=== PATIENT | male | born 1955 | race American Indian/Alaskan Native ===

== ENCOUNTER 2017-08-04 08:16 | Outpatient (CLI) | payer OTHER ==
--- NOTE | 2017-08-04 09:22 | XRay Report ---
CERVICAL SPINE, 5 VIEWS HISTORY: Cervical radiculopathy. FINDINGS: Compared to 06/22/12 exam. There is mild reversal of the normal cervical lordosis. Moderate to severe degenerative disc disease at C3-4 and C5-6 appear relatively stable. Mild degenerative disc disease at C4-5 has increased to moderate. There is new moderate degenerative disc disease at C6-7. No evidence for fracture, subluxation or suspicious bony lesion. The facet joints remain within normal limits. The oblique images demonstrate moderate left neural foraminal narrowing at C4-5. IMPRESSION: Reversal of the normal cervical lordosis. Moderate cervical spondylosis which has increased in severity since 2012 as described above. Question moderate left neuroforaminal narrowing at C4-5.
== END 2017-08-04 08:17 | disposition home or self-care (01) ==
LOC: XRAY 08:16
PROVIDERS: ATTEND Internal Medicine
DX: M50.322 Other cervical disc degeneration at C5-C6 level (principal); M50.31 Other cervical disc degeneration, high cervical region; M50.321 Other cervical disc degeneration at C4-C5 level; M50.323 Other cervical disc degeneration at C6-C7 level; M47.892 Other spondylosis, cervical region; M54.12 Radiculopathy, cervical region
CPT/HCPCS: 72050

== ENCOUNTER 2020-11-02 01:19 | Emergency (ER) | payer OTHER | END 2020-11-02 01:24 | disposition left against medical advice (07) | LOC: ED 01:19 | DX: R11.0 Nausea (principal); R07.9 Chest pain, unspecified; Z53.21 Procedure and treatment not carried out due to patient leaving prior to being seen by health care provider ==